=== PATIENT | male | born 1950 | race Caucasian/White ===

== ENCOUNTER → 2019-05-12 | Outpatient (CLI) | payer MEDICARE, OTHER | END | disposition home or self-care (01) | LOC: CFH 08:11 | PROVIDERS: ATTEND Physician Assistant Medical | DX: I25.89 Other forms of chronic ischemic heart disease (principal); I25.10 Atherosclerotic heart disease of native coronary artery without angina pectoris; I25.5 Ischemic cardiomyopathy | CPT/HCPCS: 78452; 93017; A9502 ==

== ENCOUNTER → 2019-05-14 | Outpatient (CLI) | payer MEDICARE, OTHER | END | disposition home or self-care (01) | LOC: CFH 10:23 | PROVIDERS: ATTEND Internal Medicine Cardiovascular Disease | DX: Z01.810 Encounter for preprocedural cardiovascular examination (principal); M47.9 Spondylosis, unspecified; M95.8 Other specified acquired deformities of musculoskeletal system | CPT/HCPCS: 71046 ==

== ENCOUNTER 2019-05-18 07:48 | Outpatient (CLI) | payer MEDICARE, OTHER ==
[2019-05-18 13:26] LABS: INTERNATIONAL NORMALIZED RATIO 1.23 (0.93-1.1); PROTHROMBIN TIME 12.8 Seconds (9.6-11.5)
[2019-05-18 13:45] LABS: ALANINE AMINOTRANSFERASE 47 U/L (12-78); ALBUMIN 3.5 g/dL (3.4-5.0); ALKALINE PHOSPHATASE 157 U/L (45-117); ANION GAP 2 mmol/L (5-15); BILIRUBIN,TOTAL 1.1 mg/dL (0.2-1.0); CALCIUM 7.5 mg/dL (8.5-10.1); CHLORIDE 119 mmol/L (98-107); CREATININE 1.13 mg/dL (0.7-1.3); TOTAL PROTEIN 6.7 g/dL (6.4-8.2)
[2019-05-18 14:19] LABS: MEAN CORPUSCULAR HEMOGLOBIN 19.5 pg (27.5-34.5); MEAN CORPUSCULAR HGB CONC 30.2 g/dL (33.2-36.2); MEAN CORPUSCULAR VOLUME 64.7 fL (81-97); MEAN PLATELET VOLUME 13.3 fL (7.4-10.4); PLATELET COUNT 198 x10^3/uL (130-400); RED BLOOD COUNT 5.18 x10^6/uL (4.38-5.82); RED CELL DISTRIBUTION WIDTH 19.5 % (9.4-14.8)
[2019-05-18 14:21] LABS: BASOPHILS # (AUTO) 0.03 x10^3/uL (0-0.1); BASOPHILS % (AUTO) 1 % (0-1); EOSINOPHILS # (AUTO) 0.15 x10^3/uL (0-0.4); EOSINOPHILS % (AUTO) 4 % (1-7); LYMPHOCYTES # (AUTO) 0.97 x10^3/uL (1-3.4); LYMPHOCYTES % (AUTO) 22 % (22-44); MD MORPH REVIEW ONLY; MONOCYTES # (AUTO) 0.43 x10^3/uL (0.2-0.8); MONOCYTES % (AUTO) 10 % (2-9); NEUTROPHILS # (AUTO) 2.87 x10^3/uL (1.8-6.8); NEUTROPHILS % (AUTO) 65 % (42-75)
[2019-05-18 14:23] LABS: <PLATELET ESTIMATE> ADEQUATE; GIANT PLATELETS 1+; OVALOCYTES 1+; POLYCHROMASIA 1+; TARGET CELLS 1+
[2019-05-18 14:24] LABS: HYPOCHROMIA 2+; MICROCYTOSIS 2+
[2019-05-18 14:25] LABS: SCHISTOCYTES 1+
== END 2019-05-18 23:59 | disposition home or self-care (01) ==
LOC: CFH 07:48
PROVIDERS: ATTEND Internal Medicine Cardiovascular Disease
DX: Z01.810 Encounter for preprocedural cardiovascular examination (principal)
CPT/HCPCS: 36415; 80053; 85025; 85610; 85730

== ENCOUNTER 2019-05-21 06:28 | Day surgery (SDC) | payer MEDICARE, OTHER ==
[~2019-05-21] VITALS: Ht 177.8 cm; Wt 83.6 kg
[2019-05-21] MEDS ORDERED: SODIUM CHLORIDE 0.9% 1,000 ML IV SCH ×2 (06:48→08:52)
[2019-05-21 06:53] VITALS: BP 134/78
[2019-05-21] MEDS ORDERED: ASPIRIN 325 MG TABLET EC PO ONE (07:00)
[2019-05-21] MEDS ORDERED: OMEP-110 PO (07:15)
[2019-05-21] MEDS ORDERED: METO25TA91 PO (07:15)
[2019-05-21] MEDS ORDERED: MIRT-34 PO (07:15)
[2019-05-21] MEDS ORDERED: INSU100V11 SQ-INSULIN (07:15)
[2019-05-21] MEDS ORDERED: ISOS30TA8 PO (07:15)
[2019-05-21] MEDS ORDERED: ASPI-496 PO (07:15)
[2019-05-21] MEDS ORDERED: NITR0.6T4 SL (07:15)
[2019-05-21] MEDS ORDERED: ATOR40TA78 PO (07:15)
[2019-05-21] MEDS ORDERED: METF500T17 PO (07:15)
[2019-05-21] MEDS ORDERED: LEVO137T3 PO (07:15)
[2019-05-21] MEDS ORDERED: SERT100T32 PO (07:15)
[2019-05-21] MEDS ORDERED: VERAPAMIL 2.5 MG/ML, 2ML ONE (07:48)
[2019-05-21] MEDS ORDERED: MIDAZOLAM 1 MG/ML, 5ML ONE (07:48)
[2019-05-21] MEDS ORDERED: LIDOCAINE-MPF 1%, 5ML ONE (07:48)
[2019-05-21] MEDS ORDERED: HEPARIN 1,000 UNITS/ML, 10ML ONE (07:48)
[2019-05-21] MEDS ORDERED: BIVALIRUDIN 250 MG ONE (07:48)
[2019-05-21] MEDS ORDERED: FENTANYL PF 100 MCG/2ML ONE (07:48)
[2019-05-21] MEDS ORDERED: TICAGRELOR 90 MG TABLET ONE (07:48)
[2019-05-21] MEDS ORDERED: NITROGLYCERIN 5 MG/ML, 10ML ONE (07:50)
== END 2019-05-21 10:42 | disposition home or self-care (01) ==
LOC: CACL 06:28
PROVIDERS: ATTEND Internal Medicine Cardiovascular Disease
DX: I25.110 Atherosclerotic heart disease of native coronary artery with unstable angina pectoris (principal); E11.9 Type 2 diabetes mellitus without complications; I25.5 Ischemic cardiomyopathy; E78.2 Mixed hyperlipidemia; Z79.82 Long term (current) use of aspirin; Z79.890 Hormone replacement therapy; Z79.4 Long term (current) use of insulin; Z79.899 Other long term (current) drug therapy; Z87.891 Personal history of nicotine dependence; Z95.5 Presence of coronary angioplasty implant and graft
CPT/HCPCS: 82962; 93458; 99156; C1769; C1894; J0583; J1644; J2250; J3010; Q9967